=== PATIENT | male | born 1945 | race Hispanic/Latino ===

== ENCOUNTER 2017-06-01 05:49 | Emergency (ER) | payer MEDICARE ==
--- NOTE | 2017-06-01 07:38 | RAD ---
3 VIEWS RIGHT FOOT: Date: 06/01/17 COMPARISON: None. HISTORY: Cut right heel with a piece of glass with controlled bleeding. FINDINGS: Three views of the right foot show no evidence of acute fracture or dislocation. No radiopaque foreig n body seen. There are degenerative changes in the mid foot. IMPRESSION: No evidence of acute osseous abnormality. POS: OFF
[2017-06-01] MEDS ORDERED: Bacitracin Zinc 1 Packet ONE (08:29)
== END 2017-06-01 08:36 | disposition home or self-care (01) ==
LOC: ERS 05:49
DX: S91.311A Laceration without foreign body, right foot, initial encounter (principal); I10 Essential (primary) hypertension; E11.9 Type 2 diabetes mellitus without complications; E78.5 Hyperlipidemia, unspecified; E03.9 Hypothyroidism, unspecified; Z79.899 Other long term (current) drug therapy; Z79.82 Long term (current) use of aspirin; Z79.84 Long term (current) use of oral hypoglycemic drugs; W25.XXXA Contact with sharp glass, initial encounter; Y92.009 Unspecified place in unspecified non-institutional (private) residence as the place of occurrence of the external cause

== ENCOUNTER 2018-09-30 10:45 | Inpatient (IN) | payer MEDICARE ==
[2018-09-30] MEDS ORDERED: ISOVUE-370 76%-LOCM 1 ML ONE (10:51)
[2018-09-30 12:03] LABS: #Eosinphils 0.1 thou/uL (0.0-0.7); #Lymphocytes 1.9 thou/uL (1.20-3.40); #Monocytes 0.8 thou/uL (0.11-0.59); #Neutrophils 4.7 thou/uL (1.40-6.50); %Basophils 0.3 % (0.0-1.0); %Eosinophils 1.4 % (0.0-10.0); %Lymphocytes 25.1 % (21.0-51.0); %Monocytes 10.3 % (0.0-10.0); Mean Corpuscular HGB CONC 32.8 g/dL (32.0-36.0); Mean Corpuscular Hemoglobin 29.8 pg (27.0-31.0); Mean Corpuscular Volume 90.9 fL (78.0-98.0); Mean Platelet Volume 8.8 fL (7.4-10.4); Platelet Count 182 thou/uL (130-400); RBC Distribution Width 13.2 % (11.5-14.5); Red Blood Cell (RBC) Count 5.02 mill/uL (4.70-6.10); White Blood Cell (WBC) Count 7.5 thou/uL (4.8-10.8)
--- NOTE | 2018-09-30 12:05 | RAD ---
EXAM: Portable chest PROVIDED CLINICAL HISTORY: Chest pain COMPARISON: 07/11/2016 FINDINGS: Cardiac silhouette remains enlarged. Median sternotomy changes are seen. Left subclavian cardiac paci ng device is now present with lead tips overlying the expected locations of RA, RV and coronary sinus. Right basilar airspace disease medially. Lungs appear otherwise free of significant opacity. S table blunting of the left costophrenic angle. No evidence for pneumothorax. IMPRESSION: Right basilar airspace disease. Correlate with concerns for pneumonia. Follow-up recommended.
[2018-09-30 13:33] LABS: ALT (SGPT) 12 U/L (8-55); AST (SGOT) 13 U/L (5-34); Albumin 3.8 g/dL (3.4-4.8); Alkaline Phosphatase 85 U/L (40-150); Anion Gap 15 mmol/L (10-20); BUN (Urea Nitrogen) 16 mg/dL (8.4-25.7); Bilirubin, Total 1.2 mg/dL (0.2-1.2); CK (CPK) 68 U/L (30-200); Calc. Creatinine Clearance 0 mL/min (70-130); Carbon Dioxide 21 mmol/L (23-31); Chloride 104 mmol/L (98-107); Estimated GFR-MDRD 69; Globulin 3.1 g/dL (2.4-3.5); Glucose 104 mg/dL (83-110); Lipase 9 U/L (8-78); Potassium 3.7 mmol/L (3.5-5.1); Protein, Total 6.9 g/dL (5.8-8.1); Sodium 136 mmol/L (136-145)
[2018-09-30] MEDS ORDERED: cefTRIAXone\\ROCEPHIN 2 GM VIAL ONE (13:44)
[2018-09-30] MEDS ORDERED: Furosemide 40 MG/4 ML VIAL ONE (13:44)
[2018-09-30] MEDS ORDERED: Azithromycin 500 MG VIAL ONE (14:48)
--- NOTE | 2018-09-30 14:50 | CT ---
EXAM: CT pulmonary angiogram with IV contrast and 3-D MIP reconstructions PROVIDED CLINICAL HISTORY: Dyspnea COMPARISON: None FINDINGS: There is no evidence for central or segmental pulmonary embolus. The lungs are free of significant op acity. Moderate bilateral pleural effusions. Bibasilar subsegmental atelectatic change. No evidence for thoracic lymph node enlargement. The airway appears patent and of normal caliber. The visualized portions of the upper abdomen demonstrate no acute findings. The osseous structures demonstrate no concerning lytic or blastic lesions. Vascular calcification including coronary calcium. Left subclavi an cardiac pacing device. Sternotomy change. Reflux of contrast material into the hepatic veins suggesting right heart dysfunction. IMPRESSION: No evidence for central or segmental pulmonary embolus. Moderate bilateral pleural effusions.
[2018-09-30 15:14] LABS: Troponin I 0.021 ng/mL (< 0.028)
[2018-09-30] MEDS ORDERED: Milk Of Magnesia 30 ML UDCUP PO PRN (17:51)
[2018-09-30] MEDS ORDERED: Dextrose 50% Abboject 50 ML SYRINGE IVP PRN (17:51)
[2018-09-30] MEDS ORDERED: Insulin Regular 300 UNITS/3 ML VIAL SC PRN (17:51)
[2018-09-30] MEDS ORDERED: Dextrose 5% in Water 1,000 ML IV PRN (17:51)
[2018-09-30 18:36] LABS: Troponin I 0.045 ng/mL (< 0.028)
[2018-09-30 20:57] VITALS: BMI 26.2
[2018-09-30] MEDS: Milk Of Magnesia 30 ML UDCUP PO SCH (21:05)
--- NOTE | 2018-09-30 23:31 | HP ---
CHIEF COMPLAINT: Shortness of breath, cough. HISTORY OF PRESENT ILLNESS: Mr. Bailon is a 73-year-old male with past medical history of coronary artery disease, status post CABG, hypertension, diabetes mellitus, hypothyroidism, has been having problems since 1 week. The patient states he has been having some shortness of breath and wheezing, getting worse as the time went by, also has some cough, dry. No fever. The patient does not have any orthopnea or paroxysmal nocturnal dyspnea. The patient's a.c. sugar is running a bit low. He is waking up because of the low sugar in the 70s to 80s. No chest pain either. Also noticed leg edema as well. The patient decided to come to the hospital because of worsening shortness of breath and low sugar as well as leg edema. Also, complaints of constipation. The patient was evaluated in the ER, thought to have pneumonia, right lower lobe, as well as possible CHF. The patient received Zithromax as well as ceftriaxone and furosemide, and being admitted for further evaluation and management. PAST MEDICAL HISTORY: 1. Hypertension. 2. Hypothyroidism. 3. Hyperlipidemia. 4. Diabetes mellitus. 5. Coronary artery disease, status post CABG in July. 6. History of congestive heart failure. PAST SURGICAL HISTORY: Status post CABG, status post cholecystectomy, status post hernia repair. CURRENT MEDICATIONS: The patient is on; 1. Simvastatin 40 mg daily. 2. Lisinopril 20 mg daily. 3. Levothyroxine 125 mcg daily. 4. Glimepiride 2 mg daily. 5. Coreg 3.125 b.i.d. 6. Aspirin one daily. ALLERGIES: NKDA. FAMILY HISTORY: Nothing contributory. SOCIAL HISTORY: The patient lives with family. No history of smoking. No history of alcohol or drug abuse. REVIEW OF SYSTEMS: CARDIOVASCULAR: No chest pain. Has shortness of breath. RESPIRATORY: Cough. No fever. GASTROINTESTINAL: No nausea or vomiting. No abdominal pain. Has constipation. CENTRAL NERVOUS SYSTEM: No headache. No dizziness. PHYSICAL EXAMINATION: GENERAL: The patient is alert, awake, and oriented x3. VITAL SIGNS: Temperature 98, pulse 60, respirations 20, blood pressure 138/80. HEENT: Head is normocephalic, atraumatic. Pupils are equal and reactive to light. Nasopharynx is pale and dry. Hard and soft palate, no lesions. SKIN: Turgor decreased. NECK: Supple. No JVD. LUNGS: Breath sounds diminished bilaterally. Percussion dull bilaterally. Rales present at both bases. HEART: S1, S2. Regular. ABDOMEN: Soft. No distention. No tenderness. Normal bowel sounds. RECTAL: Deferred. CENTRAL NERVOUS SYSTEM: No focal deficit. LABORATORY DATA: CBC shows WBC 7.5, hemoglobin 15, hematocrit 45, platelets of 182. Metabolic panel; sodium 136, potassium 3.7, chloride 104, CO2 of 25, BUN 10, blood urea nitrogen 16, creatinine 1, and glucose 104. Chest x-ray does show right lower lobe airspace disease, possible. CT angio chest revealed negative for pulmonary embolism, showed pulmonary pleural effusion bilaterally. EKG shows ventricular paced rhythm. ASSESSMENT: 1. Congestive heart failure, acute on chronic combined. 2. Pneumonia, right lower lobe, possible. 3. Hyperlipidemia. 4. Diabetes mellitus. 5. Hypertension. 6. Hypothyroidism. 7. Coronary artery disease, status post CABG. PLAN: 1. Vital signs q.4 hours. 2. Activities as tolerated. 3. Allergies, NKDA. 4. Hep-Lock. 5. Diet, cardiac and ADA. 6. Lasix 40 IVP daily. 7. Rocephin 2 g IV piggyback daily. 8. Zithromax 500 mg IV piggyback daily. 9. Continue home medications. 10. Accu-Chek before meals and at bedtime, sliding scale mildly with regular insulin. 11. Troponin I q.6 hours x2. We will obtain echocardiogram. Job ID: [id number]
[2018-10-01] MEDS: Levothyroxine Sodium 100 MCG TAB PO SCH (05:10)
[2018-10-01 05:54] LABS: Anion Gap 16 mmol/L (10-20); BUN (Urea Nitrogen) 18 mg/dL (8.4-25.7); Calc. Creatinine Clearance 62 mL/min (70-130); Calcium 9.5 mg/dL (7.8-10.44); Carbon Dioxide 25 mmol/L (23-31); Chloride 103 mmol/L (98-107); Estimated GFR-MDRD 66; Glucose 173 mg/dL (83-110); Potassium 3.5 mmol/L (3.5-5.1); Sodium 140 mmol/L (136-145)
[2018-10-01 06:14] LABS: Free T4 (Free Thyroxine) 1.12 ng/dL (0.70-1.48); Thyroid Stimulating Hormone 0.5086 uIU/mL (0.35-4.94)
[2018-10-01] MEDS ORDERED: Glimepiride 2 MG TAB PO SCH (07:30)
[2018-10-01] MEDS: Furosemide 40 MG/4 ML VIAL SLOW IVP SCH (08:05)
[2018-10-01] MEDS: Carvedilol 6.25 MG TAB PO SCH ×2 (08:07→20:33)
[2018-10-01] MEDS: metFORMIN 500 MG TAB PO SCH ×2 (08:07→16:56)
[2018-10-01] MEDS: Polyethylene Glycol 3350 17 GM Packet PO SCH (08:08)
[2018-10-01] MEDS: Milk Of Magnesia 30 ML UDCUP PO SCH ×2 (08:08→20:34)
[2018-10-01] MEDS ORDERED: Aspirin 81 mg Enteric Coated Tablet PO SCH (09:00)
[2018-10-01] MEDS: Sacubitril 49 MG/Valsartan 51 MG TABLET PO SCH ×2 (09:01→20:33)
[2018-10-01] MEDS: Acetaminophen 325 MG TAB PO PRN (12:47)
[2018-10-01] MEDS: cefTRIAXone\\ROCEPHIN 2 GM in Sodium Chloride 0.9% 100 ML IVPB SCH (13:12)
[2018-10-01] MEDS: Azithromycin 500 MG in Sodium Chloride 0.9% 250 ML 250 ML IVPB SCH (16:55)
[2018-10-01] MEDS ORDERED: Potassium Chloride 20 MEQ TAB PO SCH (18:00)
[2018-10-01] MEDS ORDERED: Melatonin 3 MG TAB PO PRN (19:46)
[2018-10-01] MEDS ORDERED: Simvastatin 40 MG TAB PO SCH (21:00)
[2018-10-02] MEDS: Levothyroxine Sodium 100 MCG TAB PO SCH (05:14)
[2018-10-02 09:22] LABS: Anion Gap 14 mmol/L (10-20); BUN (Urea Nitrogen) 20 mg/dL (8.4-25.7); Calc. Creatinine Clearance 76 mL/min (70-130); Calcium 9.3 mg/dL (7.8-10.44); Carbon Dioxide 26 mmol/L (23-31); Chloride 102 mmol/L (98-107); Estimated GFR-MDRD 84; Glucose 157 mg/dL (83-110); Potassium 3.7 mmol/L (3.5-5.1); Sodium 138 mmol/L (136-145)
[2018-10-02] MEDS: Milk Of Magnesia 30 ML UDCUP PO SCH ×2 (09:23→21:22)
[2018-10-02] MEDS: Sacubitril 49 MG/Valsartan 51 MG TABLET PO SCH ×2 (09:23→21:20)
[2018-10-02] MEDS: metFORMIN 500 MG TAB PO SCH ×2 (09:24→18:15)
[2018-10-02] MEDS: Aspirin Chewable 81 MG TAB PO SCH (09:24)
[2018-10-02] MEDS: Potassium Chloride 20 MEQ TAB PO SCH (09:24)
[2018-10-02] MEDS: Atorvastatin Calcium 20 MG TAB PO SCH (09:24)
[2018-10-02] MEDS: Carvedilol 6.25 MG TAB PO SCH ×2 (09:25→21:20)
[2018-10-02] MEDS: Polyethylene Glycol 3350 17 GM Packet PO SCH (09:25)
[2018-10-02] MEDS: Furosemide 40 MG/4 ML VIAL SLOW IVP SCH (09:25)
[2018-10-02] MEDS: Azithromycin 500 MG in Sodium Chloride 0.9% 250 ML 250 ML IVPB SCH (14:27)
[2018-10-02] MEDS: cefTRIAXone\\ROCEPHIN 2 GM in Sodium Chloride 0.9% 100 ML IVPB SCH (14:27)
[2018-10-02] MEDS: Acetaminophen 325 MG TAB PO PRN ×2 (14:36→22:50)
[2018-10-03] MEDS: Levothyroxine Sodium 100 MCG TAB PO SCH (05:32)
[2018-10-03] MEDS: metFORMIN 500 MG TAB PO SCH ×2 (08:23→17:40)
[2018-10-03] MEDS: Aspirin Chewable 81 MG TAB PO SCH (08:23)
[2018-10-03] MEDS: Milk Of Magnesia 30 ML UDCUP PO SCH ×3 (08:23→20:41)
[2018-10-03] MEDS: Furosemide 40 MG/4 ML VIAL SLOW IVP SCH (08:23)
[2018-10-03] MEDS: Carvedilol 6.25 MG TAB PO SCH ×2 (08:24→20:40)
[2018-10-03] MEDS: Atorvastatin Calcium 20 MG TAB PO SCH (08:24)
[2018-10-03] MEDS: Sacubitril 49 MG/Valsartan 51 MG TABLET PO SCH ×2 (08:25→20:40)
[2018-10-03] MEDS: Polyethylene Glycol 3350 17 GM Packet PO SCH (08:25)
[2018-10-03] MEDS: Potassium Chloride 20 MEQ TAB PO SCH (08:26)
[2018-10-03] MEDS: cefTRIAXone\\ROCEPHIN 2 GM in Sodium Chloride 0.9% 100 ML IVPB SCH (13:25)
[2018-10-03] MEDS: Azithromycin 500 MG in Sodium Chloride 0.9% 250 ML 250 ML IVPB SCH (14:35)
[2018-10-03] MEDS: Acetaminophen 325 MG TAB PO PRN (14:41)
[2018-10-04] MEDS: Levothyroxine Sodium 100 MCG TAB PO SCH (05:13)
[2018-10-04 06:35] LABS: Anion Gap 13 mmol/L (10-20); BUN (Urea Nitrogen) 18 mg/dL (8.4-25.7); Calc. Creatinine Clearance 83 mL/min (70-130); Calcium 9.5 mg/dL (7.8-10.44); Carbon Dioxide 28 mmol/L (23-31); Chloride 102 mmol/L (98-107); Estimated GFR-MDRD Greater than 90; Glucose 99 mg/dL (83-110); Potassium 3.8 mmol/L (3.5-5.1); Sodium 139 mmol/L (136-145)
[2018-10-04] MEDS ORDERED: Furosemide 40 MG TAB PO SCH (09:00)
[2018-10-04] MEDS: Aspirin Chewable 81 MG TAB PO SCH (09:12)
[2018-10-04] MEDS: Potassium Chloride 20 MEQ TAB PO SCH (09:13)
[2018-10-04] MEDS: metFORMIN 500 MG TAB PO SCH (09:13)
[2018-10-04] MEDS: Carvedilol 6.25 MG TAB PO SCH (09:14)
[2018-10-04] MEDS: Atorvastatin Calcium 20 MG TAB PO SCH (09:14)
[2018-10-04] MEDS: Sacubitril 49 MG/Valsartan 51 MG TABLET PO SCH (09:15)
[2018-10-04] MEDS: Milk Of Magnesia 30 ML UDCUP PO SCH (09:15)
[2018-10-04] MEDS: Polyethylene Glycol 3350 17 GM Packet PO SCH (09:15)
--- NOTE | 2018-10-04 10:50 | RAD ---
PA AND LATERAL VIEWS CHEST: Date: 10/04/18 HISTORY: CHF, pneumonia, follow-up. FINDINGS/IMPRESSION: Comparison made with exam of 09/30/18. There are changes of median sternotomy and prior cardiac surgery. Left-sided pacemaker device remains in place. The heart size is borderline. There is mild pulmonary vascular congestion. Small pleural e ffusions may be present. There are degenerative changes in the spine. No pneumothoraces or lobar cons olidation seen. POS: OFF
[2018-10-04 11:48] VITALS: BP 136/96; TEMP 97.7
[2018-10-04] MEDS: cefTRIAXone\\ROCEPHIN 2 GM in Sodium Chloride 0.9% 100 ML IVPB SCH (13:20)
[2018-10-04] MEDS: Azithromycin 500 MG in Sodium Chloride 0.9% 250 ML 250 ML IVPB SCH (14:09)
--- NOTE | 2018-10-05 09:41 | EKG ---
Test Reason : SOB Blood Pressure : / mmHG Vent. Rate : 061 BPM Atrial Rate : 090 BPM P-R Int : 000 ms QRS Dur : 174 ms QT Int : 482 ms P-R-T Axes : 000 -61 068 degrees QTc Int : 485 ms Ventricular-paced rhythm Biventricular pacemaker detected Abnormal ECG Confirmed by JERRY AUSTIN MD ([id number]), fan mail editor JAIME GOTTI ([id number]) on 10/05/2018 9:41:24 AM Referred By: Confirmed By:JERRY AUSTIN MD
--- NOTE | 2018-10-05 11:42 | DIS ---
DATE OF ADMISSION: 09/30/2018 DATE OF DISCHARGE: 10/04/2018 ADMITTING DIAGNOSES: 1. Congestive heart failure, acute on chronic. 2. Pneumonia, right lower lobe. 3. Hyperlipidemia. 4. Diabetes mellitus. 5. Hypertension. 6. Hypothyroidism. 7. Coronary artery disease, status post CABG. FINAL DIAGNOSES: 1. Acute on chronic systolic heart failure, improved. 2. Pneumonia, right lower lobe. 3. Hypertension. 4. Diabetes mellitus. 5. Hypothyroidism. 6. Coronary artery disease, status post CABG. BRIEF SUMMARY OF HOSPITAL COURSE: Mr. Bailon is a 73-year-old male, admitted because of with shortness of breath, some wheezing, also has cough, but no fever. The patient initially thought to have pneumonia; later on, he was also found to be in CHF, acute on chronic systolic. He was started on . The patient's shortness of breath gradually improved, cough became better, he did not have fever. His orthopnea also improved. He is able to ambulate. In view of improvement, the patient is being discharged. At time of discharge, he was stable. His vital signs were stable. Lungs, clear to auscultation. Abdomen is soft, nontender, bowel sounds present. DISCHARGE MEDICATIONS: 1. Levothyroxine 100 mcg daily. 2. Simvastatin 40 mg at bedtime. 3. Metformin 500 b.i.d. 4. Entresto 97/103 b.i.d. 5. Carvedilol 6.25 b.i.d. 6. Tylenol p.r.n. 7. Lasix 40 mg daily. 8. Milk of magnesia p.r.n. 9. Melatonin 6 mg at bedtime p.r.n. 10. MiraLAX 17 g daily. 11. KCl 20 mEq daily. 12. Levofloxacin 750 daily for 5 days. 13. Glimepiride was discontinued in view of hypoglycemia. FOLLOWUP: The patient will come for followup in 2 weeks. Job ID: [id number]
== END 2018-10-04 16:45 | disposition home or self-care (01) | DRG 291 ==
LOC: ERS 10:45 → ERHOLD 13:50 → 2NO 20:51
PROVIDERS: ADMIT Internal Medicine; ATTEND Internal Medicine
DX: I11.0 Hypertensive heart disease with heart failure (principal); J18.1 Lobar pneumonia, unspecified organism; I25.10 Atherosclerotic heart disease of native coronary artery without angina pectoris; E11.9 Type 2 diabetes mellitus without complications; I50.23 Acute on chronic systolic (congestive) heart failure; I42.9 Cardiomyopathy, unspecified; E03.9 Hypothyroidism, unspecified; K59.00 Constipation, unspecified; Z95.1 Presence of aortocoronary bypass graft; Z90.49 Acquired absence of other specified parts of digestive tract; Z79.82 Long term (current) use of aspirin; Z79.4 Long term (current) use of insulin; Z79.899 Other long term (current) drug therapy
CPT/HCPCS: 36415; 36416; 71045; 71046; 71275; 80048; 80053; 82550; 83690; 83880; 84439; 84443; 84484; 85025; 85379; 87040; 93005; 93306; 93798; 94760; 96365; 96367; 96375; J0456; J0696; J1940; J3490; J7050; Q9966

== ENCOUNTER 2024-11-16 14:07 | Inpatient (IN) | payer MEDICARE ==
[2024-11-16 15:06] LABS: #Basophils 0.06 10x3/uL (0.0-0.2); #Eosinophils 0.09 10x3/uL (0.0-0.7); #Monocytes 0.76 10x3/uL (0.11-0.59); #Neutrophils 4.78 10x3/uL (1.40-6.50); %Basophils 0.8 % (0.0-1.0); %Eosinophils 1.2 % (0.0-10.0); %Lymphocytes 26.5 % (21.0-51.0); %Monocytes 9.8 % (0.0-10.0); %Neutrophils 61.6 % (42.0-75.0); Hematocrit 37.1 % (42.0-52.0); Hemoglobin 12.4 g/dL (14.0-18.0); Mean Corpuscular Hemoglobin 28.3 pg (27.0-31.0); Mean Corpuscular Volume 84.7 fL (78.0-98.0); Platelet Count 211 10x3/uL (130-400); Red Blood Cell (RBC) Count 4.38 mill/uL (4.70-6.10); White Blood Cell (WBC) Count 7.76 10x3/uL (4.8-10.8)
[2024-11-16 15:19] LABS: Lipase 20 U/L (8-78)
[2024-11-16 15:21] LABS: Cocaine Metabolite Screen Negative (Negative); THC/Cannabinoid Screen Negative (Negative); Tricyclic Screen Negative (Negative)
[2024-11-16 15:22] LABS: Acetaminophen Less than 10 mcg/mL (Less than 10); Salicylate Less than 8.0 mg/dL (Less than 8.0)
[2024-11-16 15:23] LABS: Bacteria/HPF None Seen HPF (None Seen); CAUTI Indications for Culture Alt mental st,lethar; Glucose, Urine (Dipstick) Greater than 1000 mg/dL (Negative); Leukocyte Negative Leu/uL (Negative); Protein, Urine (Dipstick) Negative (Neg-Trace); RBC/HPF 0-3 HPF (0-3); Specific Gravity, Urine 1.016 (1.002-1.036); WBC/HPF 0-3 HPF (0-3)
[2024-11-16 15:24] LABS: ALT (SGPT) 10 U/L (Less than 45); AST (SGOT) 32 U/L (11-34); Albumin 3.9 g/dL (3.1-4.5); Alkaline Phosphatase 102 U/L (40-110); Anion Gap 17 mmol/L (10-20); BUN (Urea Nitrogen) 17 mg/dL (8.4-25.7); Bilirubin, Total 1.1 mg/dL (0.3-1.2); CK (CPK) 36 U/L (30-200); Calc. Creatinine Clearance 0 mL/min (70-130); Calcium 8.5 mg/dL (7.8-10.44); Carbon Dioxide 24 mmol/L (23-31); Chloride 103 mmol/L (98-107); Globulin 3.3 g/dL (2.4-3.5); Glucose 125 mg/dL (83-110); Potassium 3.2 mmol/L (3.5-5.1); Sodium 141 mmol/L (136-145)
[2024-11-16 15:24] LABS: Urine Culture Reflex No No
[2024-11-16 15:26] LABS: Troponin I Less than 0.010 ng/mL (< 0.028)
[2024-11-16] MEDS ORDERED: Aspirin Chewable 81 MG TAB ONE (16:34)
[2024-11-16] MEDS ORDERED: hydrALAZINE 20 MG/ML VIAL SLOW IVP PRN (18:33)
[2024-11-16] MEDS ORDERED: Dextrose 50% Abboject 50 ML SYRINGE SLOW IVP PRN (18:33)
[2024-11-16] MEDS ORDERED: Glucagon 1 MG/ML KIT IM PRN (18:33)
[2024-11-16] MEDS ORDERED: Senokot S 8.6-50 MG TAB PO PRN (18:33)
[2024-11-16] MEDS ORDERED: Ondansetron PF 4 MG/2 ML Vial IVP PRN (18:33)
[2024-11-16] MEDS ORDERED: Electrolyte Replacement Protocol 1 EACH FS SCH (18:45)
[2024-11-16 22:41] LABS: Troponin I Less than 0.010 ng/mL (< 0.028)
[2024-11-16] MEDS: Acetaminophen 325 MG TAB PO PRN (23:38)
[2024-11-17 03:27] LABS: #Basophils 0.06 10x3/uL (0.0-0.2); #Eosinophils 0.12 10x3/uL (0.0-0.7); #Monocytes 1.02 10x3/uL (0.11-0.59); #Neutrophils 5.17 10x3/uL (1.40-6.50); %Basophils 0.7 % (0.0-1.0); %Eosinophils 1.4 % (0.0-10.0); %Lymphocytes 27.5 % (21.0-51.0); %Monocytes 11.5 % (0.0-10.0); %Neutrophils 58.4 % (42.0-75.0); Hematocrit 34.7 % (42.0-52.0); Hemoglobin 11.5 g/dL (14.0-18.0); Mean Corpuscular Hemoglobin 27.9 pg (27.0-31.0); Mean Corpuscular Volume 84.2 fL (78.0-98.0); Platelet Count 195 10x3/uL (130-400); Red Blood Cell (RBC) Count 4.12 mill/uL (4.70-6.10); White Blood Cell (WBC) Count 8.84 10x3/uL (4.8-10.8)
[2024-11-17 04:31] LABS: Troponin I 0.025 ng/mL (< 0.028)
[2024-11-17 04:36] LABS: Anion Gap 13 mmol/L (10-20); BUN (Urea Nitrogen) 16 mg/dL (8.4-25.7); Calc. Creatinine Clearance 0 mL/min (70-130); Calcium 8.0 mg/dL (7.8-10.44); Carbon Dioxide 20 mmol/L (23-31); Chloride 111 mmol/L (98-107); Glucose 116 mg/dL (83-110); Potassium 3.4 mmol/L (3.5-5.1); Sodium 141 mmol/L (136-145)
[2024-11-17] MEDS: Enoxaparin 40 MG (0.4 mL) SYRINGE SC SCH (08:06)
[2024-11-17] MEDS: Aspirin 81 mg Enteric Coated Tablet PO SCH (08:07)
[2024-11-17] MEDS: Furosemide 20 MG TAB PO SCH (08:07)
[2024-11-17 08:20] LABS: Magnesium 1.1 mg/dL (1.6-2.6)
[2024-11-17] MEDS: Magnesium Sulfate In Water 4 GM in Premix 1 BAG IVPB SCH (10:32)
[2024-11-18 05:03] LABS: Anion Gap 14 mmol/L (10-20); BUN (Urea Nitrogen) 17 mg/dL (8.4-25.7); Calc. Creatinine Clearance 107 mL/min (70-130); Calcium 8.4 mg/dL (7.8-10.44); Carbon Dioxide 24 mmol/L (23-31); Cardiac Risk 2.0 (Less than 4.5); Chloride 107 mmol/L (98-107); Cholesterol 70 mg/dl (< 200 Desired); Glucose 104 mg/dL (83-110); HDL Cholesterol 35 mg/dL (>60 Neg Risk); LDL Cholesterol, Calculated 25 mg/dL; Magnesium 1.7 mg/dL (1.6-2.6); Potassium 3.7 mmol/L (3.5-5.1); Sodium 141 mmol/L (136-145); Triglycerides 52 mg/dL (Less than 150)
[2024-11-18] MEDS: Magnesium 2 GM/50 ML(in water) 2 GM in Premix 1 BAG IVPB SCH (08:38)
[2024-11-18 16:09] VITALS: TEMP 97.9
[2024-11-18 16:15] VITALS: BP 110/71
== END 2024-11-18 20:00 | disposition home or self-care (01) | DRG 69 ==
LOC: ERS 14:07 → PCU 16:29 → OBSVTOIN 11-17 11:19
PROVIDERS: ADMIT Internal Medicine; ATTEND Family Medicine
DX: G45.9 Transient cerebral ischemic attack, unspecified (principal); G93.41 Metabolic encephalopathy; I50.22 Chronic systolic (congestive) heart failure; D64.9 Anemia, unspecified; I11.0 Hypertensive heart disease with heart failure; I25.10 Atherosclerotic heart disease of native coronary artery without angina pectoris; E11.9 Type 2 diabetes mellitus without complications; E03.9 Hypothyroidism, unspecified; E78.5 Hyperlipidemia, unspecified; Z95.1 Presence of aortocoronary bypass graft; Z90.49 Acquired absence of other specified parts of digestive tract; Z98.890 Other specified postprocedural states; E87.6 Hypokalemia; Z79.82 Long term (current) use of aspirin; Z79.899 Other long term (current) drug therapy; Z79.84 Long term (current) use of oral hypoglycemic drugs; K02.9 Dental caries, unspecified; Z88.5 Allergy status to narcotic agent; I48.0 Paroxysmal atrial fibrillation; Z95.810 Presence of automatic (implantable) cardiac defibrillator; R93.0 Abnormal findings on diagnostic imaging of skull and head, not elsewhere classified
CPT/HCPCS: 36415; 36416; 70450; 70551; 71045; 76014; 80048; 80053; 80061; 80306; 80307; 81001; 82140; 82550; 83690; 83735; 84443; 84484; 85025; 93005; 93306; 93880; 96372; 96374; G0378; J1650; J3475